=== PATIENT | female | born 1970 | race Asian ===

== ENCOUNTER 2017-09-27 18:18 | Emergency (ER) | payer OTHER, SELFPAY | END 2017-09-27 22:12 | disposition home or self-care (01) | PROVIDERS: Emergency Provider Emergency Medicine; Visit Provider Emergency Medicine | DX: R56.9 Unspecified convulsions (principal) | CPT/HCPCS: 70450; 71260; 71275; 80048; 81003; 81025; 85025; 96365; 96375; 99058; 99284; J1200; J1953; J2930; Q9967 ==

== ENCOUNTER 2017-12-26 20:20 | Emergency (ER) | payer OTHER, SELFPAY ==
[2017-12-26 20:23] VITALS: BP 113/73; PULSE 73; RESP 18; TEMP 36.7; O2SAT 100; BMI 23.3
--- NOTE | 2017-12-27 00:11 | DI.CT.S_ITS ---
PROCEDURE: CT HEAD/BRAIN WO CON INDICATIONS: strike to the head TECHNIQUE: Noncontrast 4.5 mm thick angled axial sections acquired from the foramen magnum to the vertex, with coronal and sagittal reformats. For radiation dose reduction, the following was used: automated exposure control, adjustment of mA and/or kV according to patient size. COMPARISON: [facility], CT, HEAD WITHOUT CONTRAST, 09/27/2017, 18:41. FINDINGS: Image quality: Excellent. CSF spaces: Basal cisterns are patent. No extra-axial fluid collections. Ventricles are normal in size and shape. Brain: No midline shift. No intracranial masses or hemorrhage. Juarez-white matter interface is normal. Skull and face: Calvarium and visualized facial bones are intact, without suspicious lesions. Sinuses: Visualized sinuses and mastoids are clear. IMPRESSION: Prior right craniotomy and encephalomalacia stable over time, no new injury found. Note: These findings are concordant with the preliminary interpretation. Dictated by: Akshat Chen M.D. on 12/27/2017 at 8:04 Approved by: Akshat Chen M.D. on 12/27/2017 at 8:05
--- NOTE | 2017-12-27 00:13 | PC.NURSE ---
pt having difficulty complying with nurse assessment. pt appears to make little to no attempt to perform neuro checks. When asked to open eyes for pupil check pt made little attempt to open eyes, closing them and covering up with pillow before assessment complete. pt states own symptoms in medical terms. pt reports Hx of crainiotomy and has extra space in her head. 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 Provider notified and went directly to pt room for provider assessment.
--- NOTE | 2017-12-27 01:03 | PC.NURSE ---
pt reports a 9/10 pain and experiencing tenitis and is salivating. Provider notified
[2017-12-27] MEDS: SODIUM CHLORIDE 0.9% 1,000 ML 1000 ML IV (02:16)
[2017-12-27] MEDS: HYDROMORPHONE 0.5 MG INJ IV (02:16)
[2017-12-27] MEDS: METOCLOPRAMIDE 10 MG/2 ML INJ IV (02:16)
[2017-12-27] MEDS: diphenhydrAMINE 50 MG/ML VIAL IV (02:16)
[2017-12-27 02:51] VITALS: BP 104/68; PULSE 53; O2SAT 98
--- NOTE | 2017-12-27 03:03 | ED_ITS ---
HPI - Head Injury General Chief complaint: Head Injury Stated complaint: CONCUSSION History of Present Illness HPI Narrative: HPI 47-year-old female with a complicated medical history notable for at least one prior intracranial tumor status post craniotomy, intracranial bleeding, and gamma knife treatment now under surveillance but with ongoing tumor burden presents moderate right-sided head pain, photophobia, and headache after striking her head on the cabinet earlier today. ROS with no recent constitutional symptoms. Exam Gen: pleasant, laying on her side with a pillow covering her head, not in extremis. HEENT: no grossly visible or palpable trauma,, AT, PEERL, EOMI. Resp: Unlabored respirations with a normal work of breathing. Card: Extremities warm and well perfused. GI: Non-distended. : Deferred MSK: No visible deformities, strength and tone without visually appreciable deficit. Neuro: Gen AO x 3, no facial asymmetry, no gaze preference, no slurring of speech. CN II-III: EOMI; III, IV, : EOMI, V1-V3: sensation to touch bilaterally intact; VII: no facial asymmetry (frown / smile); VIII: no nystagmus ; X: phonation intact; XI: trapezius 5/5 bilaterally, XII: tongue midline. Cerebellar: no pronator drift, [id number] testing without dysmetria bilaterally. Heme/Lymph: Deferred Skin: Normal color with no visible lesions (other than noted above). Psych: Mood and affect appropriate. CT head: no CT evidence of hemorrhage, mass, or acute infarct. MDM Previous chart, nursing note, and vitals reviewed. A: 47-year-old female with a complicated medical history notable for at least one prior intracranial tumor status post craniotomy, intracranial bleeding, and gamma knife treatment now under surveillance but with ongoing tumor burden presents moderate right-sided head pain, photophobia, and headache after striking her head on the cabinet earlier today. DDx & Evaluation: imaging without evidence of acute traumatic abnormality. History and exam without evidence of meningitis. No identifiable high-risk features for a cervical vascular injury. Patient given antiemetics and analgesics as per SEP. Suspect mild concussion. Discharge with PCP follow-up as needed. Impression: headache (please reference below for remainder of encounter information) Related Data Home Medications Medication Instructions Recorded Confirmed albuterol sulfate [Ventolin HFA] 2 puff INH Q6HP PRN #0 09/28/17 12/26/17 cetirizine 10 mg PO QDAY #0 09/28/17 12/26/17 dextroamphetamine-amphetamine 5 mg PO BID #0 09/28/17 12/26/17 [Adderall] ranitidine HCl 150 mg PO HSP PRN #0 09/28/17 12/26/17 trazodone 50 mg PO BEDTIME PRN 12/26/17 12/26/17 Allergies Allergy/AdvReac Type Severity Reaction Status Date / Time Iodine and Iodide Containing Allergy Unknown Verified 12/26/17 20:27 Produc [IODINE AND IODIDE CONTAINING PRODUC] Penicillins [PENICILLINS] Allergy Unknown Verified 12/26/17 20:27 [facility] Social History Smoking Status: Never smoker Exam Initial Vital Signs Initial Vital Signs: Vital Signs Temperature 98.1 F 12/26/17 20:23 Pulse Rate 73 12/26/17 20:23 Respiratory Rate 18 12/26/17 20:23 Blood Pressure 113/73 12/26/17 20:23 Pulse Oximetry 100 12/26/17 20:23 Course Orders Ordered: ED Orders 12/27/17 00:11 CT head/brain wo con Stat Magnesium Sulfate (Magnesium Sulfate) 2 gm in 50 mls @ 25 mls/hr IV NOW ONE Stop: 12/27/17 03:14 Discontinued Medications Diphenhydramine HCl (Benadryl) 50 mg IV NOW ONE Stop: 12/27/17 01:16 Last Admin: 12/27/17 02:16 Dose: 50 mg Hydromorphone HCl (Dilaudid) 0.5 mg IV NOW ONE Stop: 12/27/17 01:16 Last Admin: 12/27/17 02:16 Dose: 0.5 mg Acetaminophen (Ofirmev) 1,000 mg in 100 mls @ 400 mls/hr IV NOW ONE Stop: 12/27/17 01:29 Sodium Chloride (Normal Saline 0.9%) 1,000 mls @ 1,000 mls/hr IV BOLUS ONE Stop: 12/27/17 02:14 Last Admin: 12/27/17 02:16 Dose: 1,000 mls/hr Metoclopramide HCl (Reglan) 10 mg IV NOW ONE Stop: 12/27/17 01:16 Last Admin: 12/27/17 02:16 Dose: 10 mg Vital Signs - 8 hr 12/26/17 20:23 12/27/17 02:51 Temperature 98.1 F Pulse Rate 73 53 L Respiratory Rate 18 Blood Pressure 113/73 Blood Pressure [Right Arm] 104/68 Pulse Oximetry 100 98 Discharge Plan Departure Prescriptions: No Action albuterol sulfate [Ventolin HFA] 90 MCG/PUFF HFA aerosol inhaler 2 puff INH Q6HP PRN (Reason: Cough) Qty: 0 RF: 0 cetirizine 10 MG tablet 10 mg PO QDAY Qty: 0 RF: 0 dextroamphetamine-amphetamine [Adderall] 5 MG tablet 5 mg PO BID Qty: 0 RF: 0 ranitidine HCl 150 MG tablet 150 mg PO HSP PRN (Reason: Stomach Upset) Qty: 0 RF: 0 trazodone 50 mg Tablet 50 mg PO BEDTIME PRN (Reason: Insomnia) RF: 0
[2017-12-27] MEDS: DEXAMETHASONE 1 MG TABLET 10 MG PO (03:38)
[2017-12-27 04:02] VITALS: BP 105/66; PULSE 58; RESP 16; O2SAT 99
== END 2017-12-27 04:03 | disposition home or self-care (01) ==
PROVIDERS: Emergency Provider Emergency Medicine
DX: R51 Headache (principal)
CPT/HCPCS: 70450; 96361; 96374; 96375; 99283; 99284; J1170; J1200; J2765